=== PATIENT | male | born 1965 | race Caucasian/White ===

== ENCOUNTER → 2016-06-28 | Outpatient (CLI) | payer OTHER ==
[~2016-06-28] MED LIST: ALEVE; ASPIRIN EC81 M1 PO; INVOKANA300 MG PO; JANUMET 50-1,1 UDTAB PO; JUNAMET; KLONOPIN1 MG PO; LORTAB 10/500 T1 TAB PO; LORTAB 7.5-5001 TAB PO; LYRICA PO; METFORMIN PO; OPANA ER15 MG; OXYCODONE HCL30 MG PO; OXYCONTIN PO; PERCOCET 10/3251 TAB PO; PRINIVIL20 M1 PO; RESTORIL15 MG PO; ZANAFLEX PO; ZOCOR20 MG PO
--- NOTE | ~2016-06-28 | CT2 ---
[facility] A Service of [facility] RADIOLOGY TEXT RESULTS PATIENT: HOMERO NOWAK LOCATION: [facility] : 67 UNIT #: [id number] AGE: [address]: Rudolph Jimenes MD SEX: M ORDER DR: [id number] [facility] [place] [facility]. [place], [place] [address] [id number] O MR#: [id number] Acc #: [id number] NAME: HOMERO NOWAK. : 1965 SEX: M STUDY DATE/TIME: 06/28/2016 15:22 UNIT: [facility] ROOM: STUDY DESCRIPTION: CT Abd and Pelv W Cont Attending Physician: Rudolph Jimenes M.D. Referring Physician: Rudolph Jimenes M.D. Ordering Physician: Rudolph Jimenes M.D. Primary Care Physician: Ron Cabrera M.D. MEDICAL IMAGING REPORT This report is preliminary unless electronic signature is present EXAM CT abdomen and pelvis with contrast. INDICATIONS Right side abdominal pain for the past year. PROCEDURE Contrast-enhanced CT of the abdomen and pelvis. 100 mL of Isovue-370. This CT exam was performed with one or more of the following radiation dose reduction techniques: Automatic exposure control, adjustment of mA and/or kV according to patient size, and iterative reconstruction. COMPARISON None. FINDINGS ABDOMEN WITH CONTRAST: Included lung bases clear. Low attenuation of the liver compared with the spleen nonspecific on contrast-enhanced CT. Liver measures 20 cm. Spleen, adrenal glands, pancreas, gallbladder unremarkable. 2.3-cm cyst lower pole right kidney. Uncomplicated sigmoid diverticula. Appendix normal. Bowel loops nondilated. PELVIS WITH CONTRAST: No pelvic mass or fluid. No aggressive appearing bone lesion. IMPRESSION 1. No acute findings. 2. Hepatomegaly. Possible mild hepatic steatosis. 3. Appendix is normal. 4. Uncomplicated sigmoid diverticula. [facility] A Service of [facility] RADIOLOGY TEXT RESULTS PATIENT: HOMERO NOWAK LOCATION: [facility] : 67 UNIT #: [id number] AGE: [address]: Rudolph Jimenes MD SEX: M ORDER DR: Dictated by... Brandon Doherty M.D. THIS IS AN ELECTRONICALLY VERIFIED REPORT Brandon Doherty M.D. at 06/29/2016 7:18 AM EED/psc TD: 06/28/2016 21:26 JOB #: [id number] MEDICAL IMAGING REPORT COPY
[2016-06-28 14:55] LABS: BLOOD UREA NITROGEN 15 mg/dL (9-23); CREATININE SERUM 0.7 mg/dL (0.6-1.4); GLOM FILT RATE Estimated ABOVE60 mL/min (>60)
== END | disposition home or self-care (01) ==
LOC: CCAT 13:49
PROVIDERS: Surgery
DX: R10.9 Unspecified abdominal pain (principal); R16.0 Hepatomegaly, not elsewhere classified; K57.30 Diverticulosis of large intestine without perforation or abscess without bleeding
CPT/HCPCS: 36415; 74177; 82565; 84520; Q9967

== ENCOUNTER → 2016-07-22 | Outpatient (CLI) | payer OTHER ==
[2016-07-22 13:15] LABS: ALBUMIN SERUM 4.1 g/dL (3.5-5.0); BILIRUBIN,TOTAL 0.7 mg/dL (0.2-2.0); CALCIUM SERUM 9.5 mg/dL (8.4-10.2); CREATININE SERUM 0.8 mg/dL (0.6-1.4); GLOM FILT RATE Estimated 104.9 mL/min (>60); POTASSIUM 4.3 mmol/L (3.5-5.1); PROTEIN TOTAL SERUM 6.7 g/dL (6.0-8.3)
== END | disposition home or self-care (01) ==
LOC: CLAB 10:48
PROVIDERS: Family Medicine
DX: E78.2 Mixed hyperlipidemia (principal); I10 Essential (primary) hypertension; E11.9 Type 2 diabetes mellitus without complications
CPT/HCPCS: 80053; 80061; 82043; 83036

== ENCOUNTER → 2016-07-22 | Outpatient (CLI) | payer OTHER ==
--- NOTE | ~2016-07-22 | EKG ---
PATIENT: HOMERO NOWAK UNIT #: [id number] Ventricular Rate: 58 BPM Atrial Rate: 58 BPM P-R Interval: 158 ms QRS Duration: 84 ms Q-T Interval: 426 ms QTC Calculation(Bezet): 418 ms P Dola: 24 degrees Calculated R Dola: -11 degrees Calculated T Dola: 21 degrees Diagnosis Line: Sinus bradycardia Diagnosis Line: Otherwise normal ECG Diagnosis Line: No previous ECGs available Diagnosis Line: Confirmed by CHIQUITA LI MD ([id number]) on 07/23/2016 Diagnosis Line: 9:36:07 AM INTERPRETING MD: JEN OCHOA
--- NOTE | ~2016-07-22 | CR63 ---
[facility] A Service of [facility] RADIOLOGY TEXT RESULTS PATIENT: HOMERO NOWAK LOCATION: [facility] : 67 UNIT #: [id number] AGE: [address]: George Torres DPM SEX: M ORDER DR: [id number] [facility] [address] [facility] [place] [facility]. [place], [place] [address] [id number] O MR#: [id number] Acc #: [id number] NAME: HOMERO NOWAK. : 1965 SEX: M STUDY DATE/TIME: 07/22/2016 11:12 UNIT: [facility] ROOM: STUDY DESCRIPTION: CR Chest 2 View Attending Physician: George Torres D.P.M. Referring Physician: George Torres D.P.M. Ordering Physician: George Torres M.D. Primary Care Physician: Ron Cabrera M.D. MEDICAL IMAGING REPORT This report is preliminary unless electronic signature is present EXAM Chest x-ray. HISTORY Shortness of breath with activity. Toe surgery pending. Pulmonary symptoms have been present over the past month. TECHNIQUE 2 views of the chest were obtained and compared with 01/16/2004 FINDINGS PA and lateral examination of the chest upright shows a good expansion of the parenchyma with a normal distribution of the pulmonary vascularity. There is no indication of congestion, effusion, infiltrate, tumor, or nodular density. The pleural reflections and diaphragmatic contours are normal. The cardiac silhouette and mediastinal anatomy is within normal limits. IMPRESSION Normal chest. Dictated by... Paul Grant M.D. THIS IS AN ELECTRONICALLY VERIFIED REPORT Paul Grant M.D. at 07/22/2016 3:44 PM RLF/deborah TD: 07/22/2016 12:58 JOB #: [id number] [facility] RADIOLOGY TEXT RESULTS PATIENT: HOMERO NOWAK LOCATION: [facility] : 67 UNIT #: [id number] AGE: [address]: George Torres DPM SEX: M ORDER DR: MEDICAL IMAGING REPORT Page 1 of 1 COPY
[2016-07-22 12:34] LABS: BASOPHIL# 0.1 X10e3 (0-0.3); BASOPHIL% 1.2 % (0-2.5); DIFF IND NO; EOSINOPHIL# 0.6 X10e3 (0-0.7); EOSINOPHIL% 6.7 % (0.0-7.0); HEMATOCRIT 44.1 % (38.0-50.0); HEMOGLOBIN 14.7 gm/dL (13.0-16.0); LYMPHOCYTE# 3.3 X10e3 (1.0-3.5); LYMPHOCYTE% 37.2 % (17.0-45.0); MEAN CELL VOLUME 94.9 FL (83-96); MEAN CORPUSCULAR HEMOGLOBIN 31.6 PG (28-34); MEAN CORPUSCULAR HGB CONC 33.3 g/dL (30-36); MEAN PLATELET VOLUME 8.2 FL (6.5-11.5); MONOCYTE# 0.7 X10e3 (0-1.0); MONOCYTE% 8.2 % (3.0-12.0); NEUTROPHIL# 4.1 X10e3 (1.5-7.1); NEUTROPHIL% 46.7 % (40-75); PLATELET COUNT 214 X10e3 (140-420); RED BLOOD COUNT 4.64 X10e (3.90-5.60); RED CELL DISTRIBUTION WIDTH 13.1 % (11.0-15.5); WHITE BLOOD COUNT 8.8 X10e3 (4.0-10.5)
[2016-07-22 12:48] LABS: INR 1.1; PROTHROMBIN TIME (PATIENT) 11.1 SECONDS (9.6-11.5)
[2016-07-22 12:51] LABS: AMPHETAMINE NEG (NEG); BARBITURATES NEG (NEG); BENZODIAZEPINES NEG (NEG); COCAINE NEG (NEG); MARIJUANA NEG (NEG); OPIATES NEG (NEG); TRICYCLIC ANTIDEPRESSANTS NEG (NEG); U METHADONE NEG (NEG)
[2016-07-22 13:13] LABS: BUN/CREATININE RATIO 26.25; CALCIUM SERUM 9.4 mg/dL (8.4-10.2); CREATININE SERUM 0.8 mg/dL (0.6-1.4); GLOM FILT RATE Estimated 104.9 mL/min (>60); POTASSIUM 4.2 mmol/L (3.5-5.1)
== END | disposition home or self-care (01) ==
LOC: CLAB 10:45
PROVIDERS: Podiatrist Foot & Ankle Surgery
DX: Z01.818 Encounter for other preprocedural examination (principal); M20.22 Hallux rigidus, left foot; M79.675 Pain in left toe(s); M79.674 Pain in right toe(s); R00.1 Bradycardia, unspecified
CPT/HCPCS: 36415; 71020; 80048; 80307; 85025; 85610; 85730; 93005